=== PATIENT | female | born 1970 | race Hispanic/Latino ===

== ENCOUNTER 2019-02-17 11:19 | Outpatient (CLI) | payer OTHER ==
--- NOTE | 2019-02-17 12:06 | XRay Report ---
RIGHT SHOULDER, 3 VIEWS: HISTORY: right shoulder pain. Normal bone mineralization. No acute osseous injury or joint pathology is detected. The soft tissues are unremarkable. The lateral right humeral head appears slightly deformed which may represent previous surgical changes. IMPRESSION: Right shoulder are within normal limits.
== END 2019-02-17 11:20 | disposition home or self-care (01) ==
LOC: XRAY 11:19
PROVIDERS: ATTEND Orthopaedic Surgery
DX: M25.511 Pain in right shoulder (principal)